=== PATIENT | male | born 1970 | race Caucasian/White ===

== ENCOUNTER 2024-06-07 06:37 | Day surgery (SDC) | payer MEDICARE, OTHER ==
[~2024-06-07] VITALS: Ht 193 cm; Wt 169.6 kg
[2024-06-07] VITALS (8 sets, daily range): BP systolic 112–146; BP diastolic 62–96; TEMP 97.3–98.6; O2SAT 90–94
[~2024-06-07 06:37] MED LIST: ASPI-615 PO; CLAR5TAB11 PO; ELIQ5TAB4 PO; FLON1SPR; IRBE75TA11 PO; LOPR1TAB6 PO; OXYC10TA3 PO; ROSU10TA61 PO
[2024-06-07] MEDS ORDERED: ONDANSETRON 4MG 2ML VIAL As Ordered ONE (06:57)
[2024-06-07] MEDS ORDERED: KETOROLAC 60MG 2ML VIAL As Ordered ONE (06:57)
[2024-06-07] MEDS ORDERED: ROCURONIUM BROMIDE 50MG/5ML VIAL As Ordered ONE (06:57)
[2024-06-07] MEDS ORDERED: LIDOCAINE 2% 100MG/5ML SDV (FOR ANES.) As Ordered ONE (06:57)
[2024-06-07] MEDS ORDERED: fentaNYL 100 MCG/2 ML INJECTION As Ordered ONE (06:57)
[2024-06-07] MEDS ORDERED: MIDAZOLAM INJ 2MG/2ML VIAL As Ordered ONE (06:57)
[2024-06-07] MEDS ORDERED: SUGAMMADEX SODIUM 500 MG/5 ML VIAL (BRIDION) As Ordered ONE (06:57)
[2024-06-07] MEDS ORDERED: ACETAMINOPHEN 1000MG 100ML IV BAG As Ordered ONE (06:57)
[2024-06-07] MEDS ORDERED: propofoL 200 MG/20 ML VIAL As Ordered ONE (06:57)
[2024-06-07] MEDS ORDERED: LIDOCAINE 1% SDV 5ML VIAL SC PRN (07:05)
[2024-06-07] MEDS ORDERED: ONDANSETRON 4MG 2ML VIAL IV PRN (07:30)
[2024-06-07] MEDS ORDERED: ACETAMINOPHEN TAB 650MG DOSE (2X325MG) PO PRN (07:30)
[2024-06-07] MEDS: ceFAZolin SOD 1 GM in D5W MINI-BAG PLUS 50 ML IV ONE (07:34)
[2024-06-07] MEDS: ceFAZolin SOD 2 GM in IV 1 EA IV ONE (07:34)
[2024-06-07] MEDS: LR 1,000 ML IV SCH ×2 (07:37→14:05)
[2024-06-07] MEDS ORDERED: ELIQ5TAB PO (07:45)
[2024-06-07] MEDS ORDERED: METO1TAB87 PO (07:45)
[2024-06-07] MEDS ORDERED: DESL1TAB3 PO (07:45)
[2024-06-07] MEDS ORDERED: HOME MED LIST COMPLETE! XX SCH (07:50)
[2024-06-07] MEDS: HEPARIN SOD (PORCINE) 5000UNITS/ML 1ML VIAL/SYRINGE SQ ONE (07:54)
[2024-06-07] MEDS ORDERED: HYDROmorphone HCL 2MG/ML 1ML VIAL As Ordered ONE (09:46)
[2024-06-07] MEDS ORDERED: fentaNYL 100 MCG/2 ML INJECTION IV PRN (14:05)
[2024-06-07] MEDS: LIDOCAINE 1% SDV 30ML VIAL As Ordered ONE (14:05)
[2024-06-07] MEDS: HYDROMORPHONE HCL 0.5 MG/ 0.5 ML SYRINGE IV PRN (14:37)
[2024-06-07] MEDS: ONDANSETRON 4MG 2ML VIAL IV PRN (14:37)
[2024-06-07] MEDS: oxyCODONE 5MG TAB PO PRN (14:38)
[2024-06-07 15:16] LABS: HEMATOCRIT 45.7 % (42.0-52.0); HEMOGLOBIN 15.1 g/dl (13.5-17.5); MEAN CORPUSCULAR HEMOGLOBIN 29.5 pg (27.0-33.0); MEAN CORPUSCULAR VOLUME 89.4 fl (80.0-96.0); PLATELET COUNT, AUTOMATED 210 10^3/uL (150-450); RED BLOOD COUNT 5.11 10^6/uL (4.30-6.10); WHITE BLOOD COUNT 11.8 10^3/uL (4.0-10.0)
[2024-06-07 15:44] LABS: BLOOD UREA NITROGEN 15 MG/DL (9-23); CALCIUM LEVEL 8.5 MG/DL (8.5-10.1); CARBON DIOXIDE LEVEL 26 MMOL/L (20-31); CHLORIDE LEVEL 106 MMOL/L (98-107); CREATININE FOR GFR 0.88 MG/DL (0.70-1.30); GLOMERULAR FILTRATION RATE > 60.0 (>56); GLUCOSE, FASTING 149 MG/DL (60-100); POTASSIUM SERUM 4.5 MMOL/L (3.5-5.1); SODIUM LEVEL 140 MMOL/L (136-145)
[2024-06-07] MEDS: PERCOCET 5MG/325MG TAB PO PRN (15:56)
[2024-06-07] MEDS: NS 1,000 ML IV SCH (15:56)
[2024-06-07] MEDS: ceFAZolin SOD 2 GM in IV 1 EA IV SCH (15:56)
[2024-06-07] MEDS ORDERED: ceFAZolin SOD 2 GM in D5W MINI-BAG PLUS 50 ML IV SCH (16:00)
[2024-06-07] MEDS: DOCUSATE SODIUM 100MG CAPSULE PO SCH (21:00)
[2024-06-07] MEDS: IRBESARTAN 150MG TAB PO SCH (21:00)
[2024-06-07] MEDS: ROSUVASTATIN 10 MG TAB (CRESTOR) PO SCH (21:37)
[2024-06-07] MEDS: METOPROLOL TART 25 MG TABLET PO SCH (21:38)
[2024-06-07] MEDS: HEPARIN SOD (PORCINE) 5000UNITS/ML 1ML VIAL/SYRINGE SC SCH (21:38)
[2024-06-08] VITALS (7 sets, daily range): BP systolic 124–144; BP diastolic 50–83; TEMP 97.9–98.2; O2SAT 90–95
[2024-06-08] MEDS: PERCOCET 5MG/325MG TAB PO PRN (00:27)
[2024-06-08 06:11] LABS: HEMATOCRIT 40.8 % (42.0-52.0); HEMOGLOBIN 13.2 g/dl (13.5-17.5); MEAN CORPUSCULAR HEMOGLOBIN 29.5 pg (27.0-33.0); MEAN CORPUSCULAR HGB CONC 32.4 g/dl (32.0-36.5); MEAN CORPUSCULAR VOLUME 91.1 fl (80.0-96.0); PLATELET COUNT, AUTOMATED 213 10^3/uL (150-450); RED BLOOD COUNT 4.48 10^6/uL (4.30-6.10)
[2024-06-08 06:33] LABS: BLOOD UREA NITROGEN 18 MG/DL (9-23); CALCIUM LEVEL 8.5 MG/DL (8.5-10.1); CARBON DIOXIDE LEVEL 26 MMOL/L (20-31); CHLORIDE LEVEL 107 MMOL/L (98-107); CREATININE FOR GFR 0.91 MG/DL (0.70-1.30); GLOMERULAR FILTRATION RATE > 60.0 (>56); GLUCOSE, FASTING 126 MG/DL (60-100); POTASSIUM SERUM 4.2 MMOL/L (3.5-5.1); SODIUM LEVEL 139 MMOL/L (136-145)
[2024-06-08] MEDS: FLUTICASONE PROP 0.05% NASAL SPRAY 16 GM (FLONASE) NARES SCH (09:00)
[2024-06-08] MEDS ORDERED: COLA100C5 PO (16:04)
[2024-06-08] MEDS ORDERED: CIPR-249 PO (16:04)
== END 2024-06-08 16:50 | disposition home or self-care (01) ==
LOC: M SDC 06:37 → M OR 06:37 → UNDOADMIN 06:37 → EDSTATUS 07:30 → M MS5PR 15:30 → M OR 15:30 → M MS5PR 15:30 → UNDODISIN 06-08 16:50 → M SDC 06-08 16:50
PROVIDERS: ATTEND Urology
DX: C61 Malignant neoplasm of prostate (principal); G47.33 Obstructive sleep apnea (adult) (pediatric); Z88.8 Allergy status to other drugs, medicaments and biological substances; Z79.899 Other long term (current) drug therapy; Z87.891 Personal history of nicotine dependence
CPT/HCPCS: 36415; 38571; 55866; 80048; 85027; 86850; 86900; 86901; 88305; 88309; 96361; 96372; 96374; 96376; J0131; J0665; J0690; J1100; J1170; J1885; J2250; J2405; J3010; S2900

== ENCOUNTER → 2024-07-13 | Outpatient (REF) | payer MEDICARE, OTHER ==
[~2024-07-13] MED LIST changes: +CIPR-249 PO; +COLA100C5 PO; +DESL1TAB3 PO; +ELIQ5TAB PO; +METO1TAB87 PO
[2024-07-13 17:59] LABS: APPEARANCE, URINE HAZY (CLEAR); BACTERIA, URINE AUTO NEGATIVE (NEGATIVE); BILIRUBIN, URINE AUTO NEGATIVE (NEGATIVE); BLOOD, URINE BLOOD 3+ (NEGATIVE); COLOR, URINE YELLOW (YELLOW); GLUCOSE, URINE (UA) AUTO NEGATIVE (NEGATIVE); KETONE, URINE AUTO NEGATIVE (NEGATIVE); LEUKOCYTE ESTERASE, URINE AUTO NEGATIVE (NEGATIVE); NITRITE, URINE AUTO NEGATIVE (NEGATIVE); PROTEIN, URINE AUTO NEGATIVE (NEGATIVE); RBC, URINE AUTO TNTC /HPF (0-3); SPECIFIC GRAVITY URINE AUTO 1.012 (1.002-1.035); SQUAMOUS EPITHELIAL CELL UR AU 0 /HPF (0-6); UROBILINOGEN, URINE AUTO 0.2 mg/dL (0.0-2.0); WBC, URINE AUTO 13 /HPF (0-3)
== END ==
LOC: M SMT 17:07
PROVIDERS: ATTEND Urology
DX: N39.0 Urinary tract infection, site not specified (principal)

== ENCOUNTER → 2024-09-30 | Outpatient (REF) | LOC: M PLAIMG 09:24 | PROVIDERS: ATTEND Internal Medicine | DX: M19.011 Primary osteoarthritis, right shoulder (principal); M19.012 Primary osteoarthritis, left shoulder; M25.711 Osteophyte, right shoulder; M19.071 Primary osteoarthritis, right ankle and foot; M19.072 Primary osteoarthritis, left ankle and foot; M72.2 Plantar fascial fibromatosis ==

== ENCOUNTER → 2024-11-10 | Outpatient (REF) | LOC: M PLAIMG 10:31 | PROVIDERS: ATTEND Internal Medicine | DX: R06.02 Shortness of breath (principal) ==